=== PATIENT | female | born 1945 | race Caucasian/White ===

== ENCOUNTER 2020-05-26 19:13 | Emergency (ER) | payer OTHER ==
[2020-05-26 19:24] VITALS: BP 129/56; PULSE 64; TEMP 98.6; BMI 27.3
--- NOTE | 2020-05-26 19:39 | PDOC ---
History of Present Illness - General Chief Complaint: Eye Problem Stated Complaint: EYE REDNESS Time Seen by Provider: 05/26/20 19:35 - History of Present Illness Initial Comments: 05/26/20 19:36 74-year-old female presents for evaluation of right eye pain x1 week she has loss of vision over the last year had a prior eye surgery which she does not know the name of. No systemic symptoms. Past History - Medical History Allergies/Adverse Reactions: Allergies Allergy/AdvReac Type Severity Reaction Status Date / Time No Known Allergies Allergy Verified 05/26/20 19:23 Home Medications: Ambulatory Orders Tobramycin 0.3% Ophth Soln [Tobrex Ophthalmic Solution -] 1 drop OD Q4HWA #1 bottle 05/26/20 COPD: No - Psycho-Social/Smoking History Smoking History: Never smoked - Substance Abuse Hx (Audit-C & DAST Scrn) How often the patient has a drink containing alcohol: Never Score: In Men: 4 or > Positive; In Women: 3 or > Positive: 0 Screen Result (Pos requires Nsg. Audit-10AR): Negative Review of Systems - Review of Systems HEENTM: Yes: Eye Pain *Physical Exam - Vital Signs Last Vital Signs Temp Pulse Resp BP Pulse Ox 98.6 F 64 18 129/56 L 99 05/26/20 19:21 05/26/20 19:21 05/26/20 19:21 05/26/20 19:21 05/26/20 19:21 - Physical Exam 05/26/20 19:37 Right eye is injected external ocular movements are intact crusting on the lashes Medical Decision Making - Medical Decision Making 05/26/20 19:38 I suspect a conjunctivitis or a cellulitis of the conjunctiva tobramycin topical drops ophthalmology follow-up tomorrow without fail I have reviewed the pathophysiology with the patient. They are in agreement with the treatment plan all questions were answered to their satisfaction. Understanding for follow-up without fail was also conveyed to the patient. Again they are in agreement. Discharge - Discharge Information Problems reviewed: Yes Clinical Impression/Diagnosis: Bacterial conjunctivitis of right eye Condition: Stable Disposition: HOME - Admission No - Additional Discharge Information Prescriptions: Tobramycin 0.3% Ophth Soln [Tobrex Ophthalmic Solution -] 1 drop OD Q4HWA #1 bottle - Follow up/Referral Referrals: Montez Win [Primary Care Provider] - Cali Andrade MD [Staff Physician] - - Patient Discharge Instructions Additional Instructions: Please use the antibiotic drops as directed and return to the emergency room should symptoms worsen. Without fail follow-up with ophthalmology in 1 to 2 days for further evaluation and treatment options. - Post Discharge Activity
== END 2020-05-26 20:00 | disposition home or self-care (01) ==
LOC: JERFT 19:13
DX: H10.31 Unspecified acute conjunctivitis, right eye (principal)
CPT/HCPCS: 99283-25